=== PATIENT | male | born 1955 | race Hispanic/Latino ===

== ENCOUNTER 2018-03-15 14:27 | Emergency (ER) | payer BC ==
[2018-03-15 14:35] VITALS: BMI 29.8
[2018-03-15] MEDS ORDERED: Metoprolol 1 mg/ml Inj IVP STA (14:38)
--- NOTE | 2018-03-15 14:39 | ED PDOC ---
Arrival/HPI - General Historian: Patient - History of Present Illness Time/Duration: 1-3 hours Symptom Onset: Sudden Symptom Course: Unchanged Quality: Tightness Severity Level: 9 Context: Work <Wilner Post - Last Filed: 03/15/18 16:26> - History of Present Illness Activities at Onset: Rest <Savage Hernandez - Last Filed: 03/15/18 17:11> - General Chief Complaint: Chest Pain Time Seen by Provider: 03/15/18 14:27 - History of Present Illness Narrative History of Present Illness (Text): 63 year old male presents with chest tightness and palpitations. Patient states he was at work around noon, 3 hours ago, when he felt tightness in his chest followed by palpitations. He stated he had some SOB, no syncope. Patient denies fever, chills, abdominal pain, or any other complaints at this time. 03/15/18 15:30 (Wilner Post) Past Medical History - Provider Review Nursing Documentation Reviewed: Yes - Infectious Disease Hx of Infectious Diseases: None <Wilner Post - Last Filed: 03/15/18 16:26> - Travel History Have you recently traveled outside [place] w/in the past 3 mons?: No - Past History Past History: No Previous <Savage Hernandez - Last Filed: 03/15/18 17:11> Family/Social History - Physician Review Nursing Documentation Reviewed: Yes Family/Social History: No Known Family HX <Wilner Post - Last Filed: 03/15/18 16:26> Smoking Status: Unknown If Ever Smoked Hx Alcohol Use: No Hx Substance Use: No Hx Substance Use Treatment: No <Savage Hernandez - Last Filed: 03/15/18 17:11> Allergies/Home Meds <Wilner Post - Last Filed: 03/15/18 16:26> <Savage Hernandez - Last Filed: 03/15/18 17:11> Allergies/Adverse Reactions: Allergies nitroglycerin Adverse Reaction (Verified 03/15/18 14:35) ANAPHYLAXIS Review of Systems - Review of Systems Constitutional: Normal Eyes: Normal ENT: Normal Respiratory: Normal Cardiovascular: Palpitations, Other (tightness) Gastrointestinal: Normal Genitourinary Male: Normal Musculoskeletal: Normal Skin: Normal Neurological: Normal Endocrine: Normal <Wilner Post - Last Filed: 03/15/18 16:26> - Review of Systems Hemo/Lymphatic: Normal Psychiatric: Normal <Savage Hernandez Last Filed: 03/15/18 17:11> Physical Exam Temperature: Afebrile Blood Pressure: Normal Pulse: Tachycardic Respiratory Rate: Normal Appearance: Positive for: Well-Appearing, Non-Toxic Pain Distress: Moderate Mental Status: Positive for: Alert and Oriented X 3 - Systems Exam Head: Present: Atraumatic, Normocephalic Pupils: Present: PERRL Extroacular Muscles: Present: EOMI Conjunctiva: Present: Normal Mouth: Present: Moist Mucous Membranes Neck: Present: Normal Range of Motion Respiratory/Chest: Present: Clear to Auscultation, Good Air Exchange Cardiovascular: Present: Tachycardic Abdomen: Present: Normal Bowel Sounds. No: Tenderness, Distention Lower Extremity: No: Edema Neurological: Present: GCS=15, CN II-XII Intact Skin: Present: Warm <Wilner Post - Last Filed: 03/15/18 16:26> Vital Signs Reviewed: Yes <DavidSavage Last Filed: 03/15/18 17:11> Vital Signs Temp Pulse Resp BP Pulse Ox 03/15/18 16:41 98 F 91 H 18 124/81 96 03/15/18 15:18 94 H 18 129/83 99 03/15/18 14:48 108 H 126/83 03/15/18 14:27 98.2 F 180 H 18 126/82 98 Medical Decision Making - Lab Interpretations I have reviewed the lab results: Yes <Wilner Post - Last Filed: 03/15/18 16:26> Re-evaluation Time: 16:00 Reassessment Condition: Improved - Critical Care Critical Care Minutes: 30 minutes Critical Care Time: Excluding Proc Time - Lab Interpretations Interpretation: All labs normal - RAD Interpretation Motion Picture Set Grip: Radiologist - EKG Interpretation Interpreted by ED Physician: Yes Type: 12 lead EKG Comparison: Different from prev. EKG <DavidSavage Filed: 03/15/18 17:11> ED Course and Treatment: Plan -EKG -CBC, CMP, cardiac iso -Adenosine IV -metoprolol IV -repeat EKG -reasses 03/15/18 15:19 Patient in sinus rhythm status post adenosine infusion HR in low 90s 03/15/18 16:01 (Wilner Post) 03/15/18 Patient Seen With Resident: In agreement with resident note which contains more details about the patient. Patient was seen and evaluated with resident. Came up with plan and treatment together. I performed the hx and physical exam of the patient and discussed their mgt with the RESIDENT. I reviewed the RESIDENT's NOTE and agree with the assessment and plan of care. with pt's initial arrival, IV/EKG was obtained immediately, and pt received 6mg of adenosine, + responded well, improvement in HR is noted almost immediately; will provide patient 5mg lopressor IV pt is currently comfortable pt is not in any distress pt vital signs improved 03/15/18 15:27 Discussed case with who states that if patient remains stable in sinus rhythm and has no further complaints with normal lab findings, then he can be discharged home with outpt f/u and to be placed on Metoprolol 25mg BID x 7 days, will f/u with pt in his office next week. 1615 pt remained comfortable vital signs remained stable pt is made aware of his medical results pt is encouraged fluids pt is encouraged NO caffeine products pt will f/u as directed pt will be discharged home (Savage Hernandez) - Critical Care Narrative Critical Care (Text): 03/15/18 16:56 critical care time: 30min, excluding procedure time, excluding time teaching residents/students/mid-level providers; including initial eval/diagnosis, diagnostic interpretation, re-eval, consultations, final disposition (Savage Hernandez) - Lab Interpretations Lab Results: 03/15/18 15:31 03/15/18 15:31 Lab Results 03/15/18 15:31: WBC 14.7 H, RBC 5.50, Hgb 16.4, Hct 47.5, MCV 86.4, MCH 29.8, MCHC 34.5, RDW 13.1, Plt Count 367, MPV 10.8, Gran % 67.6, Lymph % (Auto) 21.2 L , Pacific % (Auto) 10.3 H, Eos % (Auto) 0.7 L, Baso % (Auto) 0.2, Gran # 9.97 H, Lymph # (Auto) 3.1, Pacific # (Auto) 1.5 H, Eos # (Auto) 0.1, Baso # (Auto) 0.03 03/15/18 15:31: Sodium 144, Potassium 3.9, Chloride 106, Carbon Dioxide 24, Anion Gap 19, BUN 25 H, Creatinine 1.1, Est GFR ( Amer) > 60, Est GFR ( Non-Af Amer) > 60, Random Glucose 111 H, Calcium 10.0, Magnesium 2.0, Total Bilirubin 0.5, AST 31, ALT 45, Alkaline Phosphatase 77, Lactate Dehydrogenase 404, Total Creatine Kinase 84, Troponin I < 0.01, Total Protein 7.7, Albumin 4.7 , Globulin 3.0, Albumin/Globulin Ratio 1.6 - RAD Interpretation Narrative RAD Interpretations (Text): 03/15/18 16:57 HISTORY: palpitations COMPARISON: No prior. FINDINGS: LUNGS: No active pulmonary disease. PLEURA: No significant pleural effusion identified, no pneumothorax apparent. CARDIOVASCULAR: Normal. OSSEOUS STRUCTURES: No significant abnormalities. VISUALIZED UPPER ABDOMEN: Normal. OTHER FINDINGS: None. IMPRESSION: No active disease. (Savage Hernandez) Radiology Orders: 03/15/18 15:25 CHEST PORTABLE [RAD] Stat - EKG Interpretation EKG Interpretation (Text): 03/15/18 16:59 EKG1: SVT at 180 bpm, normal axis, no ectopy, non-specific st-t changes, ABNL EKG; after 6 of adenosine EKG2: Sinus tach at 115bpm, normal axis, + frequent PVCs, non-specific st-t changes, ABNL EKG; (Savage Hernandez) - Medication Orders Current Medication Orders: Discontinued Medications Aspirin (Aspirin) 325 mg PO STAT STA Stop: 03/15/18 15:09 Last Admin: 03/15/18 15:15 Dose: 325 mg Sodium Chloride (Sodium Chloride 0.9%) 1,000 mls @ 100 mls/hr IV .Q10H [facility] Last Admin: 03/15/18 15:18 Dose: 100 mls/hr eMAR Start Stop Document 03/15/18 15:18 SRE (Rec: 03/15/18 15:18 SRE [id number]) Intravenous Solution Start Date 03/15/18 Start Time 15:18 Metoprolol Tartrate (Lopressor) 5 mg IVP STAT STA Stop: 03/15/18 14:39 Last Admin: 03/15/18 14:48 Dose: 5 mg IVP Administration Document 03/15/18 14:48 SRE (Rec: 03/15/18 14:49 SRE [id number]) Charges for Administration # of IVP Administrations 1 DEC Pulse and Blood Pressure Document 03/15/18 14:48 SRE (Rec: 03/15/18 14:49 SRE [id number]) Pulse Pulse Rate (60-90) 108 Blood Pressure Blood Pressure (100/60-150/90) 126/83 Disposition/Present on Arrival - Present on Arrival Any Indicators Present on Arrival: No History of DVT/PE: No History of Uncontrolled Diabetes: No Urinary Catheter: No History of Decub. Ulcer: No History Surgical Site Infection Following: None - Disposition Have Diagnosis and Disposition been Completed?: Yes Disposition Time: 16:25 <Wilner Post - Last Filed: 03/15/18 16:26> <Savage Hernandez - Last Filed: 03/15/18 17:11> - Disposition Diagnosis: SVT (supraventricular tachycardia) Disposition: HOME/ ROUTINE Condition: IMPROVED Discharge Instructions (ExitCare): Supraventricular Tachycardia (SVT) Print Language: SOMALI Additional Instructions: Please keep log of your blood pressure Avoid caffeine products Follow up with Dr. Choi in the office (next week) Please take new medication metoprolol 25 twice a day. Prescriptions: Metoprolol Tartrate [Lopressor] 25 mg PO BID #14 tab Referrals: [facility] [Outside] - Follow up with primary [employer] [place] [Outside] - Follow up with primary [facility] [place] [Outside] - Follow up with primary [facility], [Non-Staff] - Follow up with primary Sukumar Michelle MD [Staff Provider] - Follow up with primary Forms: [employer] ([place])
[2018-03-15 14:46] VITALS: RESP 18
[2018-03-15] MEDS ORDERED: Sodium Chloride 0.9% 1,000 ML IV SCH (15:15)
[2018-03-15 15:43] LABS: BASO # 0.03 K/mm3 (0.0-2.0); BASO % 0.2 % (0.0-3.0); EOS # 0.1 (0.0-0.7); EOS % 0.7 % (1.5-5.0); GRAN # 9.97 (1.4-6.5); GRAN % 67.6 % (50.0-68.0); HEMOGLOBIN 16.4 g/dL (14.0-18.0); LYMPH # 3.1 (1.2-3.4); LYMPH % 21.2 % (22.0-35.0); MEAN CELL VOLUME 86.4 fl (80.0-105.0); MEAN CORPUSCULAR HEMOGLOBIN 29.8 pg (25.0-35.0); MEAN CORPUSCULAR HGB CONC 34.5 g/dl (31.0-37.0); MEAN PLATELET VOLUME 10.8 fl (7.0-11.0); MONO # 1.5 (0.1-0.6); MONO % 10.3 % (1.0-6.0); RBC 5.5 10^6/uL (3.5-6.1); RED CELL DISTRIBUTION WIDTH 13.1 % (11.5-14.5); WHITE BLOOD COUNT 14.7 10^3/ul (4.5-11.0)
[2018-03-15 15:46] LABS: BLOOD UREA NITROGEN 25 mg/dL (7-21); GFR AFRICAN-AMERICAN > 60; GFR NON-AFRICAN AMERICAN > 60
[2018-03-15 15:47] LABS: ALB/GLOB RATIO 1.6 (1.1-1.8); ALBUMIN 4.7 g/dL (3.0-4.8); ALT/SGPT 45 U/L (7-56); AST/SGOT 31 U/L (17-59)
--- NOTE | 2018-03-15 15:47 | RAD ---
HISTORY: palpitations COMPARISON: No prior. FINDINGS: LUNGS: No active pulmonary disease. PLEURA: No significant pleural effusion identified, no pneumothorax apparent. CARDIOVASCULAR: Normal. OSSEOUS STRUCTURES: No significant abnormalities. VISUALIZED UPPER ABDOMEN: Normal. OTHER FINDINGS: None. IMPRESSION: No active disease.
[2018-03-15 15:57] LABS: TROPONIN I < 0.01 ng/mL
[2018-03-15 16:43] VITALS: BP 124/81; PULSE 91; TEMP 98; O2SAT 96
--- NOTE | 2018-03-16 09:44 | CARD ---
APPROVED REPORT EKG Measurement Heart [id number] <Conclusion> Supraventricular tachycardia STTW changes
--- NOTE | 2018-03-16 09:45 | CARD ---
APPROVED REPORT EKG Measurement Heart [id number] <Conclusion> Sinus tachycardia with frequent PVCs
== END 2018-03-15 16:41 | disposition home or self-care (01) ==
LOC: ED 14:27
DX: I47.1 Supraventricular tachycardia (principal)
CPT/HCPCS: 71045; 80053; 82550; 83615; 83735; 84484; 85025; 93005; 96374; 99283; J0153; J7030